=== PATIENT | male | born 1960 | race Caucasian/White ===

== ENCOUNTER → 2017-11-26 | Outpatient (CLI) | payer BC ==
--- NOTE | 2017-11-26 07:56 | XR ---
EXAMINATION TYPE: XR lumbosacral spine min 4V DATE OF EXAM: 11/26/2017 CLINICAL HISTORY: Right low back pain down into right leg for 6 months. TECHNIQUE: Frontal, lateral, and oblique images of the lumbar spine are obtained. COMPARISON: None FINDINGS: There are 5 lumbar type vertebral bodies identified. The lumbar spine shows grade 1 anter olisthesis of L4 on L5 without evidence of acute fracture or dislocation. Vertebral body heights and disk space heights are within normal limits. There is prominent facet arthropathy lower lumbar leve ls. The oblique images appear within normal limits. Vascular calcification of overlying aorta is note d. IMPRESSION: Grade 1 anterolisthesis L4 on L5 with multilevel lower lumbar facet arthropathy.
== END | disposition home or self-care (01) ==
LOC: RADXRMAIN 06:45
PROVIDERS: ATTEND Family Medicine
DX: M43.16 Spondylolisthesis, lumbar region (principal); M46.96 Unspecified inflammatory spondylopathy, lumbar region
CPT/HCPCS: 72110

== ENCOUNTER → 2018-01-11 | Outpatient (CLI) | payer BC ==
--- NOTE | 2018-01-11 08:49 | CT ---
EXAMINATION TYPE: CT lumbar spine w con DATE OF EXAM: 01/11/2018 COMPARISON: NONE HISTORY: Back pain CT DLP: 794.5 mGycm Automated exposure control for dose reduction was used. CONTRAST: CT scan of the lumbar is performed with IV Contrast, patient injected with 100 mL of Isovue 300. TECHNIQUE: Enhanced CT of the lumbar spine was performed. Bone and soft tissue window settings are s ubmitted as well as coronal and sagittal reconstructions. FINDINGS: There is grade 1 anterolisthesis of L4 on L5 without pars interarticularis defect. This is likely degenerative with extensive facet arthropathy seen at this level. Vertebral bodies maintain ve rtebral body heights the lumbar spine. Pedicles and transverse processes are intact. Sacroiliac joint s are symmetric. Moderate atherosclerosis is seen of the abdominal aorta and its branches. Probable r enal sinus cysts are noted bilaterally and partially visualized. L1-L2: There is a small broad-based disc bulge, facet arthropathy and mild ligamentum flavum hypertro phy without spinal canal stenosis or neural foraminal narrowing. L2-L3: There is a broad-based disc bulge and facet arthropathy and ligamentum flavum buckling resulti ng in mild bilateral neural foraminal narrowing and mild spinal canal stenosis. L3-L4: There is a broad-based disc bulge, facet arthropathy and ligamentum flavum buckling creating a t least mild bilateral neural foraminal narrowing and mild spinal canal stenosis. L4-L5: There is disc uncovering from the anterolisthesis with a broad-based disc bulge, facet arthrop athy and ligamentum flavum buckling creating severe right and moderate left neural foraminal narrowin g with at least moderate spinal canal stenosis. L5-S1: Small broad-based disc bulge is seen resulting in mild bilateral neural foraminal narrowing. N o spinal canal stenosis. IMPRESSION: 1. Grade 1 anterolisthesis of L4 on L5 that in combination with degenerative change create at least m oderate spinal canal stenosis, moderate left neural foraminal narrowing and severe right neural angelica inal narrowing. Degree of stenosis could be further evaluated more accurately with MRI. 2. Multilevel degenerative disc disease creating mild spinal canal stenosis from L2 through L4 and va riable degree neural foraminal narrowing as described above.
== END | disposition home or self-care (01) ==
LOC: RADCTMAIN 07:51
PROVIDERS: ATTEND Family Medicine
DX: M48.061 Spinal stenosis, lumbar region without neurogenic claudication (principal); M99.73 Connective tissue and disc stenosis of intervertebral foramina of lumbar region; M51.36 Other intervertebral disc degeneration, lumbar region; M43.16 Spondylolisthesis, lumbar region; M47.816 Spondylosis without myelopathy or radiculopathy, lumbar region
CPT/HCPCS: 72132; Q9967

== ENCOUNTER → 2018-05-14 | Outpatient (CLI) | payer BC ==
--- NOTE | 2018-05-14 13:05 | XR ---
EXAMINATION TYPE: XR lumbar spine 2 or 3V DATE OF EXAM: 05/14/2018 CLINICAL HISTORY: Recent surgery with persistent pain TECHNIQUE: Frontal and lateral images of the lumbar spine are obtained. COMPARISON: Lumbar spine x-ray November 26, 2017. CT lumbar spine January 11, 2018. FINDINGS: There are 5 lumbar type vertebral bodies redemonstrated. There is interval surgery of post erior radicular rods and screws and metallic disc material at L4-L5 level. There is stable grade 1 re trolisthesis of L5 on S1 after surgery. Vertebral body heights and disc space heights above L4 level remain satisfactory. Facet arthropathy mid to lower lumbar spine is again seen. Vascular calcificatio n overlying abdominal aorta is redemonstrated. IMPRESSION: Interval surgery L4-L5 level with stable alignment.
== END | disposition home or self-care (01) ==
LOC: RADXRMAIN 07:32
PROVIDERS: ATTEND Family Medicine
DX: Z47.89 Encounter for other orthopedic aftercare (principal); Z98.890 Other specified postprocedural states
CPT/HCPCS: 72100

== ENCOUNTER 2020-12-06 06:55 | Emergency (ER) | payer BC ==
[2020-12-06 07:01] VITALS: TEMP 98.4
--- NOTE | 2020-12-06 07:22 | ED ---
General Adult HPI - General Chief complaint: Extremity Injury, Lower Stated complaint: Leg pain Time Seen by Provider: 12/06/20 07:03 Source: patient, RN notes reviewed Mode of arrival: ambulatory Limitations: no limitations - History of Present Illness Initial comments: 60-year-old male presents emergency Department chief complaint of left leg pain. Patient states he's been having symptoms for the last 5 weeks [place] having the symptoms he states he started with the pain in his calf region. Patient states that is exacerbated by walking denies any noticeable swelling or redness. No history DVT or PE. Patient states she does have a history of hypertension hyperlipidemia and is a smoker. Patient states that he does not take long walking for the pain increases. He states his toes feel tingly denies any back pain, bowel bladder incontinence retention. - Related Data Home Medications Medication Instructions Recorded Confirmed Aspirin EC [Ecotrin Low Dose] 81 mg PO DAILY 12/06/20 12/06/20 Ibuprofen [Motrin] 800 mg PO Q8H PRN 12/06/20 12/06/20 Simvastatin [Zocor] 20 mg PO HS 12/06/20 12/06/20 amLODIPine [Norvasc] 5 mg PO DAILY 12/06/20 12/06/20 Allergies Allergy/AdvReac Type Severity Reaction Status Date / Time No Known Allergies Allergy Verified 12/06/20 07:43 Review of Systems ROS Statement: Those systems with pertinent positive or pertinent negative responses have been documented in the HPI. ROS Other: All systems not noted in ROS Statement are negative. Past Medical History Past Medical History: Hyperlipidemia, Hypertension History of Any Multi-Drug Resistant Organisms: None Reported Past Surgical History: Back Surgery, Orthopedic Surgery Past Psychological History: No Psychological Hx Reported Smoking Status: Current every day smoker Past Alcohol Use History: Occasional Past Drug Use History: Marijuana General Exam Limitations: no limitations General appearance: alert, in no apparent distress Head exam: Present: atraumatic, normocephalic, normal inspection Eye exam: Present: normal appearance, PERRL, EOMI. Absent: scleral icterus, conjunctival injection, periorbital swelling Respiratory exam: Present: normal lung sounds bilaterally. Absent: respiratory distress, wheezes, rales, rhonchi, stridor Cardiovascular Exam: Present: regular rate, normal rhythm, normal heart sounds. Absent: systolic murmur, diastolic murmur, rubs, gallop, clicks GI/Abdominal exam: Present: soft, normal bowel sounds. Absent: distended, tenderness, guarding, rebound, rigid Extremities exam: Present: other (Lower extremity reveal equal strength equal color slightly temperature change in the left versus the right only in the foot noted, bounding pulse the right faint pulse in the left nontender to palpation the leg) Back exam: Present: full ROM. Absent: tenderness Neurological exam: Present: alert, reflexes normal. Absent: motor sensory deficit Skin exam: Present: warm, dry, intact, normal color. Absent: rash Course Vital Signs 12/06/20 06:56 Temperature 98.4 F Pulse Rate 89 Respiratory 20 Rate Blood Pressure 169/91 O2 Sat by Pulse 99 Oximetry Medical Decision Making - Medical Decision Making Ultrasound was reviewed and shows no evidence of acute DVT though patient has near occlusion of the proximal artery. Patient's case discussed with Dr. Patel on-call for vascular surgeon who recommended patient to follow-up in office as patient has no acute changes. Patient was instructed he has any changes back emergency Department immediately.I counseled the patient for smoking cessation for greater than 3 minutes. Patient understands the risks and states that he will call immediately today for an appointment. - Lab Data Result diagrams: 12/06/20 07:24 12/06/20 07:24 Lab Results 12/06/20 12/06/20 12/06/20 Range/Units 07:24 07:24 07:24 WBC 9.3 (3.8-10.6) k/uL RBC 5.13 (4.30-5.90) m/uL Hgb 15.9 (13.0-17.5) gm/dL Hct 46.8 (39.0-53.0) % MCV 91.2 (80.0-100.0) fL MCH 31.0 (25.0-35.0) pg MCHC 34.0 (31.0-37.0) g/dL RDW 12.8 (11.5-15.5) % Plt Count 232 (150-450) k/uL MPV 7.5 Neutrophils % 63 % Lymphocytes % 26 % Monocytes % 4 % Eosinophils % 5 % Basophils % 1 % Neutrophils # 5.9 (1.3-7.7) k/uL Lymphocytes # 2.4 (1.0-4.8) k/uL Monocytes # 0.4 (0-1.0) k/uL Eosinophils # 0.5 (0-0.7) k/uL Basophils # 0.1 (0-0.2) k/uL PT 10.1 (9.0-12.0) sec INR 0.9 (<1.2) APTT 23.2 (22.0-30.0) sec Sodium 142 (137-145) mmol/L Potassium 4.1 (3.5-5.1) mmol/L Chloride 109 H (98-107) mmol/L Carbon Dioxide 23 (22-30) mmol/L Anion Gap 10 mmol/L BUN 21 H (9-20) mg/dL Creatinine 0.66 (0.66-1.25) mg/dL Est GFR (CKD-EPI)AfAm >90 (>60 ml/min/1.73 sqM) Est GFR (CKD-EPI)NonAf >90 (>60 ml/min/1.73 sqM) Glucose 179 H (74-99) mg/dL Calcium 9.6 (8.4-10.2) mg/dL Total Bilirubin 1.1 (0.2-1.3) mg/dL AST 25 (17-59) U/L ALT 26 (4-49) U/L Alkaline Phosphatase 66 (38-126) U/L Total Protein 7.3 (6.3-8.2) g/dL Albumin 4.6 (3.5-5.0) g/dL Disposition Clinical Impression: Occlusive disease of artery of lower extremity Disposition: HOME SELF-CARE Condition: Stable Instructions (If sedation given, give patient instructions): Peripheral Artery Disease (ED) Additional Instructions: Please return to the Emergency Department if symptoms worsen or any other concerns. Is patient prescribed a controlled substance at d/c from ED?: No Referrals: Jonny Scruggs MD [Primary Care Provider] - 1-2 days Jacqui Patel DO [STAFF PHYSICIAN] - 1-2 days Time of Disposition: 09:02
[2020-12-06 07:30] LABS: Basophils # (A) 0.1 k/uL (0-0.2); Basophils % (A) 1 %; Eosinophils # (A) 0.5 k/uL (0-0.7); Eosinophils % (A) 5 %; HCT 46.8 % (39.0-53.0); HGB 15.9 gm/dL (13.0-17.5); Lymphocytes # (A) 2.4 k/uL (1.0-4.8); Lymphocytes % (A) 26 %; MCV 91.2 fL (80.0-100.0); Mean Platelet Volume 7.5; Monocytes # (A) 0.4 k/uL (0-1.0); Monocytes % (A) 4 %; Neutrophils # (A) 5.9 k/uL (1.3-7.7); Neutrophils % (A) 63 %; Platelet Count 232 k/uL (150-450); RBC 5.13 m/uL (4.30-5.90); RDW 12.8 % (11.5-15.5); WBC 9.3 k/uL (3.8-10.6)
[2020-12-06 07:41] LABS: INR 0.9 (<1.2); Partial Thromboplastin Time 23.2 sec (22.0-30.0); Prothrombin Time 10.1 sec (9.0-12.0)
[2020-12-06 08:01] LABS: ALT 26 U/L (4-49); AST 25 U/L (17-59); African American GFR (CKD) >90 (>60 ml/min/1.73 sqM); Albumin 4.6 g/dL (3.5-5.0); Alkaline Phosphatase 66 U/L (38-126); Anion Gap 10 mmol/L; Blood Urea Nitrogen 21 mg/dL (9-20); Calcium 9.6 mg/dL (8.4-10.2); Carbon Dioxide 23 mmol/L (22-30); Chloride 109 mmol/L (98-107); Glucose 179 mg/dL (74-99); Non-African American GFR(CKD) >90 (>60 ml/min/1.73 sqM); Potassium 4.1 mmol/L (3.5-5.1); Sodium 142 mmol/L (137-145); Total Bilirubin 1.1 mg/dL (0.2-1.3); Total Protein 7.3 g/dL (6.3-8.2)
--- NOTE | 2020-12-06 08:38 | US ---
EXAMINATION TYPE: US venous doppler duplex LE LT DATE OF EXAM: 12/06/2020 8:31 AM COMPARISON: NONE CLINICAL HISTORY: pain. No redness or swelling. Calf pain. Patient states calf pain comes when he w alks and stops when he is still. SIDE PERFORMED: Left TECHNIQUE: The lower extremity deep venous system is examined utilizing real time linear array sonog vibha with graded compression, doppler sonography and color-flow sonography. VESSELS IMAGED: Common Femoral Vein Deep Femoral Vein Greater Saphenous Vein * Femoral Vein Popliteal Vein Small Saphenous Vein * Proximal Calf Veins (* superficial vessels) Left Leg: Appears NEGATIVE for DVT. Incidental finding: Popliteal artery appears almost occluded. Grayscale, color doppler, spectral doppler imaging performed of the deep veins of the left lower extr emity. There is normal flow, compressibility, vascular waveforms. IMPRESSION: No ultrasound evidence for acute DVT in the left lower extremity. Note is made of near c omplete occlusion in the popliteal artery towards the end of study. Correlate clinically.
[2020-12-06 09:05] VITALS: BP 138/79; PULSE 76; RESP 18
== END 2020-12-06 09:05 | disposition home or self-care (01) ==
LOC: EC 06:55
DX: I70.202 Unspecified atherosclerosis of native arteries of extremities, left leg (principal); I10 Essential (primary) hypertension; E78.5 Hyperlipidemia, unspecified; F17.200 Nicotine dependence, unspecified, uncomplicated; F12.90 Cannabis use, unspecified, uncomplicated; Z79.82 Long term (current) use of aspirin
CPT/HCPCS: 36415; 80053; 85025; 85610; 85730; 99284

== ENCOUNTER 2020-12-24 09:23 | Day surgery (SDC) | payer BC ==
[2020-12-19 13:13] VITALS: BMI 29.4
[~2020-12-24 09:23] MED LIST: ALPRAZolam 0.25 MG TAB PO PRN; ASPIRIN 325 MG TAB PO PRN; SODIUM CHLORIDE 0.9% 1,000 ML in EMPTY BAG 1 BAG IV ONE
[2020-12-24] MEDS ORDERED: SODIUM CHLORIDE 0.9% 1,000 ML IV ONE (09:40)
[2020-12-24 09:44] VITALS: RESP 16; TEMP 99
[2020-12-24] MEDS ORDERED: MIDAZOLAM 2 MG/2 ML VIAL IV ONE (11:14)
[2020-12-24] MEDS ORDERED: LIDOCAINE 1% INJ 10MG/ML (20 ML MDV) SQ ONE (11:15)
[2020-12-24] MEDS ORDERED: IOPAMIDOL-250 100ML BTL INTRAARTER ONE (11:27)
[2020-12-24] MEDS ORDERED: SODIUM CHLORIDE 0.9% 1,000 ML IV SCH (11:45)
--- NOTE | 2020-12-24 11:54 | IR ---
Fluoroscopy HISTORY: Peripheral vascular disease 0.7 minutes fluoroscopy time supplied to the referring clinician. 163 intraoperative C-arm images do cument the procedure. See dictated report from cardiology.
--- NOTE | 2020-12-24 16:49 | AN ---
ANGIOGRAPHY REPORT DATE OF SERVICE: 12/24/2020 PERFORMING PHYSICIAN: Harvinder Corley M.D. PROCEDURES PERFORMED: 1. Abdominal aortogram. 2. Bilateral lower extremity runoff. INDICATION: Left lower extremity intermittent claudication in this 60-year-old gentleman who underwent duplex study that was abnormal. APPROACH: Right common femoral artery. COMPLICATIONS: None. LEVEL OF SEDATION: Moderate, with sedation length of 14 minutes. PROCEDURE DESCRIPTION: After obtaining informed consent, the patient was brought to the cardiac laborer hoisting. The right common femoral artery was cannulated using micropuncture technique. The micropuncture wire was passed easily. Then I placed a 5-Cameroonian sheath. I did abdominal aortogram and bilateral lower extremity runoff using 5-Cameroonian pigtail catheter which was initially placed at the level of the renal arteries, then it was pulled into above the bifurcation of the aorta to right and left common iliac arteries. The procedure was completed without any complication. SELECTIVE PERIPHERAL ANGIOGRAM: 1. The aorta appeared to be angiographically normal. 2. Common iliac arteries. The right common iliac artery appeared to be angiographically normal and the left common iliac artery appeared to be occluded proximally and reconstitute by the external iliac artery on the right. 3. External iliac arteries. Both appeared to be angiographically normal. 4. Common femoral arteries. Both appeared to be angiographically normal. 5. Profundae. Both are patent. 6. SFA. Both appeared to be patent. 7. Popliteals. The right popliteal appeared to be angiographically normal and the left popliteal is occluded and reconstitutes below the knee. 8. Below the knee. There is 2-vessel runoff below the knee bilaterally with AT and PT. CONCLUSION: 1. 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 2. 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 POST-PROCEDURE MANAGEMENT: The patient will be discharged home and he will be scheduled to undergo PARAOPTOMETRIC of the left iliac and left popliteal. MMODL / IJN: [id number] /
[2020-12-24 17:00] VITALS: BP 132/73; PULSE 58
== END 2020-12-24 17:00 | disposition home or self-care (01) ==
LOC: CATHCVL 09:23
PROVIDERS: ATTEND Internal Medicine Interventional Cardiology
DX: I70.212 Atherosclerosis of native arteries of extremities with intermittent claudication, left leg (principal); I10 Essential (primary) hypertension; F17.210 Nicotine dependence, cigarettes, uncomplicated; Z79.899 Other long term (current) drug therapy; Z79.82 Long term (current) use of aspirin
CPT/HCPCS: 36200; 75625; 75716; C1769 ×4; C1894; J2250; J2001; Q9966

== ENCOUNTER 2021-01-15 10:38 | Day surgery (SDC) | payer BC ==
[2021-01-13 11:56] VITALS: BMI 28.7
[2021-01-15 11:49] LABS: Basophils # (A) 0.1 k/uL (0-0.2); Basophils % (A) 1 %; Eosinophils # (A) 0.4 k/uL (0-0.7); Eosinophils % (A) 4 %; HCT 47.9 % (39.0-53.0); HGB 15.6 gm/dL (13.0-17.5); Lymphocytes # (A) 2.7 k/uL (1.0-4.8); Lymphocytes % (A) 24 %; MCH 29.9 pg (25.0-35.0); MCHC 32.6 g/dL (31.0-37.0); MCV 91.8 fL (80.0-100.0); Mean Platelet Volume 7.8; Monocytes # (A) 0.6 k/uL (0-1.0); Monocytes % (A) 5 %; Neutrophils # (A) 7.4 k/uL (1.3-7.7); Neutrophils % (A) 65 %; Platelet Count 250 k/uL (150-450); RBC 5.22 m/uL (4.30-5.90); RDW 13.4 % (11.5-15.5); WBC 11.4 k/uL (3.8-10.6)
[2021-01-15 11:58] LABS: African American GFR (CKD) >90 (>60 ml/min/1.73 sqM); Anion Gap 13 mmol/L; Blood Urea Nitrogen 18 mg/dL (9-20); Calcium 9.9 mg/dL (8.4-10.2); Carbon Dioxide 22 mmol/L (22-30); Chloride 106 mmol/L (98-107); Glucose 104 mg/dL (74-99); Non-African American GFR(CKD) >90 (>60 ml/min/1.73 sqM); Sodium 141 mmol/L (137-145)
[2021-01-15 12:07] LABS: Potassium 4.9 mmol/L (3.5-5.1)
[2021-01-15] MEDS: MIDAZOLAM 2 MG/2 ML VIAL IVP ONE ×2 (14:38→14:49)
[2021-01-15] MEDS: fentaNYL (PF) 50 MCG/ML 2 ML AMP IVP ONE ×2 (14:38→15:49)
[2021-01-15] MEDS ORDERED: LIDOCAINE 1% INJ 10MG/ML (20 ML MDV) SQ ONE (14:39)
[2021-01-15] MEDS: HEPARIN SODIUM 1,000 UN/ML (10ML VL) IV ONE ×2 (14:42→15:24)
[2021-01-15] MEDS ORDERED: CLOPIDOGREL 75 MG TAB PO ONE (16:41)
[2021-01-15] MEDS ORDERED: IOPAMIDOL-250 100ML BTL INTRAARTER ONE (16:56)
[2021-01-15] MEDS ORDERED: SODIUM CHLORIDE 0.9% 1,000 ML in EMPTY BAG 1 BAG IV SCH (17:15)
[2021-01-15] MEDS ORDERED: ONDANSETRON 4 MG/2 ML VIAL ONE (17:33)
--- NOTE | 2021-01-15 19:47 | LTR ---
DATE OF SERVICE: January 15, [address] Scruggs: I had the pleasure of seeing Tres Garcia at [facility] today where he underwent successful balloon angioplasty and stenting of chronically occluded left common and left external iliac arteries. The procedure went very well without any complication with good angiographic results. I want to thank you for allowing us to participate in his care. Please do not hesitate to call if you have any questions or concerns. Sincerely, Harvinder Corley MD MMJANIE / SILVIANON: [id number] /
--- NOTE | 2021-01-15 20:00 | AN ---
ANGIOGRAPHY REPORT DATE OF SERVICE: January 15, 2021 PERFORMING PHYSICIAN: Harvinder Corley MD. PROCEDURE PERFORMED: 1. Successful stenting of the left external iliac artery using 10 x 80 mm absolute Pro self expandable stent with an excellent angiographic results. 2. Successful stenting of the left common iliac artery using 8 x 57 and 8 x 27 Visi pro balloon expandable stent with an excellent angiographic results. 3. Successful crossing chronic total occlusion of the left common and left external iliac artery. 4. Selective angiogram of the left common and left external and left common femoral arteries. 5. Selective right common femoral artery angiogram. INDICATION: This is a 60-year-old gentleman with significant history of smoking, who was experiencing left leg intermittent claudication, Fontan class 3, who recently underwent a Doppler study and that revealed occluded left popliteal artery. He underwent an angiogram and that revealed occluded left common and left popliteal arteries. He was brought today for intervention. APPROACH: Right common femoral artery. COMPLICATION: None. LEVEL OF SEDATION: Moderate with sedation length of 127 minutes. PROCEDURE DESCRIPTION: After obtaining an informed consent, the patient was brought to the cardiac concrete plant laborer. The right common femoral artery was cannulated using micropuncture technique under ultrasound guidance, the micropuncture wire passed easily. Then I placed a 6-Sierra Leonean sheath 23 cm Brite tip sheath in the right common femoral artery. Anticoagulation at that point was initiated using heparin with continuous ACT monitoring throughout the case. After that, I did select the left common iliac artery using an Omni Flush catheter. Using a 035 glide wire, I was able to cross the chronic total occlusion of the left common iliac artery and advance the catheter all the way to the left common femoral artery where I did inject contrast to prove that I was in the true lumen. After that. I did exchange my 23 cm 6-Sierra Leonean Brite tip sheath into a 55 cm Raabe sheath using the 0.035 stiff Glidewire. Subsequently, I did balloon angioplasty of the left external and left common iliac artery using 6 mm x 120 mm balloon. After that for the left external iliac artery, I deployed a 10 x 80 mm absolute Pro self expandable stent. The stent was positioned under fluoroscopy guidance and deployed under fluoroscopic guidance. For the left common iliac artery, I deployed 2 balloon expandable stent. The first one distally was 8 x 57 and the second one was 8 x 27 mm. I did post dilate the self expandable stent using the balloon expandable stents. The final angiogram showed excellent angiographic results. Gently, I attempted crossing the COUNTER CLERK of the left popliteal and that was unsuccessful because it is more favorable coming from a pedal approach. At that point, I decided to stop. I did after that exchange my long sheath into short sheath using 0.035 stiff Glidewire before I did selective left common femoral artery angiogram. The procedure was completed without any complication. POSTPROCEDURE MANAGEMENT: 1. Dual anti-platelet therapy. 2. Risk factor modifications. 3. Follow up with the patient. MMODL / IJN: [id number] /
[2021-01-15] MEDS ORDERED: METOCLOPRAMIDE 5 MG/ML 2 ML VIAL IVP PRN (20:56)
[2021-01-15] MEDS ORDERED: ATORVASTATIN 10 MG TAB PO SCH (21:00)
--- NOTE | 2021-01-15 22:12 | IR ---
Fluoroscopy HISTORY: Peripheral vascular occlusive disease 55.5 minutes fluoroscopy time supplied to the referring clinician. 262 intraoperative C-arm images d ocument the procedure. See dictated report from cardiology.
[2021-01-16 05:49] VITALS: RESP 18; TEMP 98.3
[2021-01-16 08:13] LABS: Basophils % (A) 0 %; Eosinophils # (A) 0.1 k/uL (0-0.7); Eosinophils % (A) 0 %; HCT 46.4 % (39.0-53.0); HGB 15.8 gm/dL (13.0-17.5); Lymphocytes % (A) 11 %; MCH 31.1 pg (25.0-35.0); MCV 91.3 fL (80.0-100.0); Mean Platelet Volume 7.9; Monocytes % (A) 6 %; Neutrophils # (A) 14.4 k/uL (1.3-7.7); Neutrophils % (A) 82 %; Platelet Count 254 k/uL (150-450); RBC 5.08 m/uL (4.30-5.90); RDW 12.9 % (11.5-15.5); WBC 17.7 k/uL (3.8-10.6)
[2021-01-16 08:30] LABS: African American GFR (CKD) >90 (>60 ml/min/1.73 sqM); Anion Gap 9 mmol/L; Blood Urea Nitrogen 13 mg/dL (9-20); Calcium 9.7 mg/dL (8.4-10.2); Carbon Dioxide 25 mmol/L (22-30); Chloride 103 mmol/L (98-107); Glucose 122 mg/dL (74-99); Non-African American GFR(CKD) >90 (>60 ml/min/1.73 sqM); Potassium 4.6 mmol/L (3.5-5.1); Sodium 137 mmol/L (137-145)
[2021-01-16 09:00] VITALS: BP 138/69; PULSE 75
[2021-01-16] MEDS ORDERED: ASPIRIN 81 MG PO SCH (09:00)
[2021-01-16] MEDS ORDERED: CLOPIDOGREL 75 MG TAB PO SCH (09:00)
[2021-01-16] MEDS ORDERED: amLODIPine 5 MG TAB PO SCH (09:00)
--- NOTE | 2021-01-16 23:02 | DS ---
DISCHARGE SUMMARY ADMISSION DATE: January 15, 2021. DISCHARGE DATE: January 16, 2021. BRIEF HISTORY: This is a 60-year-old gentleman who was admitted to the hospital yesterday and underwent successful recanalizing, chronically occluded left iliac artery with good angiographic results and without any complication from right groin approach. The patient was seen this morning. The right groin is soft and nontender and without any bruises. He is going to be discharged home on dual anti-platelet therapy and I will follow up with the patient next week in the office. MMODL / IJN: [id number] /
== END 2021-01-16 12:48 | disposition home or self-care (01) ==
LOC: CATHCVL 10:38 → 3SCARD 16:45 → CATHCVL 01-16 12:48
PROVIDERS: ATTEND Internal Medicine Interventional Cardiology
DX: I70.212 Atherosclerosis of native arteries of extremities with intermittent claudication, left leg (principal); F17.210 Nicotine dependence, cigarettes, uncomplicated; I10 Essential (primary) hypertension; E78.5 Hyperlipidemia, unspecified; Z79.899 Other long term (current) drug therapy; I70.92 Chronic total occlusion of artery of the extremities
CPT/HCPCS: 37221; 37223; 80048 ×2; 85025 ×2; 87635; C1894 ×3; C1769 ×7; C1876 ×2; C1725; J2250; J2765; J2405; J2001; J3010; J1644; Q9966

== ENCOUNTER → 2021-10-30 | Day surgery (SDC) | payer BC ==
[2021-10-28 09:29] VITALS: BMI 29.4
[~2021-10-30] MED LIST changes: +ASPIRIN 81 MG PO SCH; +ATORVASTATIN 10 MG TAB PO SCH; +CLOPIDOGREL 75 MG TAB PO SCH; +HEPARIN SODIUM,PORCINE 10,000 UNIT in SODIUM CHLORIDE 0.9% 1,000 ML IRRIGATION PRN; +HEPARIN SODIUM,PORCINE 2,500 UNIT in SODIUM CHLORIDE 0.9% 250 ML IRRIGATION PRN; +IOPAMIDOL-250 100ML BTL INTRAARTER ONE; +LIDOCAINE 1% INJ 10MG/ML (20 ML MDV) SQ ONE; +MIDAZOLAM 2 MG/2 ML VIAL IV ONE; +NALOXONE 0.4 MG/ML 1 ML VIAL IVP PRN; +ZOLPIDEM 5 MG TAB PO PRN; +amLODIPine 5 MG TAB PO SCH
[2021-10-30 07:37] VITALS: TEMP 98.5
[2021-10-30 07:44] LABS: Basophils # (A) 0.1 k/uL (0-0.2); Basophils % (A) 1 %; Eosinophils # (A) 0.5 k/uL (0-0.7); Eosinophils % (A) 5 %; HCT 48.3 % (39.0-53.0); Lymphocytes # (A) 2.7 k/uL (1.0-4.8); Lymphocytes % (A) 27 %; MCH 31.3 pg (25.0-35.0); MCHC 33.2 g/dL (31.0-37.0); MCV 94.2 fL (80.0-100.0); Mean Platelet Volume 7.7; Monocytes # (A) 0.6 k/uL (0-1.0); Monocytes % (A) 6 %; Neutrophils # (A) 5.9 k/uL (1.3-7.7); Neutrophils % (A) 59 %; Platelet Count 265 k/uL (150-450); RBC 5.13 m/uL (4.30-5.90); RDW 13.4 % (11.5-15.5); WBC 9.9 k/uL (3.8-10.6)
[2021-10-30 07:54] LABS: African American GFR (CKD) >90 (>60 ml/min/1.73 sqM); Anion Gap 8 mmol/L; Blood Urea Nitrogen 19 mg/dL (9-20); Calcium 9.3 mg/dL (8.4-10.2); Carbon Dioxide 22 mmol/L (22-30); Chloride 109 mmol/L (98-107); Glucose 120 mg/dL (74-99); Non-African American GFR(CKD) >90 (>60 ml/min/1.73 sqM); Potassium 4.5 mmol/L (3.5-5.1); Sodium 139 mmol/L (137-145)
--- NOTE | 2021-10-30 10:08 | IR ---
Fluoroscopy HISTORY: Pain in left leg 60 seconds fluoroscopy time supplied to the referring clinician. 140 intraoperative C-arm images doc ument the procedure. See dictated report from cardiology.
[2021-10-30 10:28] VITALS: RESP 16
[2021-10-30 13:45] VITALS: BP 127/71; PULSE 68
--- NOTE | 2021-10-31 12:54 | P.PCN ---
Date of Procedure: 10/31/21 Operative Findings: AN ABDOMINAL AORTOGRAM AND BILATERAL LOWER EXTREMITIES RUNOFF PERFORMING PHYSICIAN: Harvinder Corley MD PROCEDURE PERFORMED: 1. An abdominal aortogram 2. Bilateral lower extremities runoff INDICATION: Intermittent claudication in this 60-year-old gentleman who is known to have PAD and prior angioplasty COMPLICATION: None LEVEL OF SEDATION: Moderate was sedation length of moderate was sedation length of 10 minutes APPROACH: Right common femoral artery PROCEDURE DESCRIPTION: After obtaining informed consent and explaining the procedure benefits, risks, and complications, the patient was brought to the cardiac labeling strategist. The right groin was prepped and draped in sterile fashion. The right common femoral artery was cannulated using micropuncture technique, under ultrasound guidance. A micropuncture wire was advanced, and the micropuncture sheath was advanced over the wire, then the micropuncture sheath was exchanged over an 0.35 wire into a 5-Cymraes sheath dilator assembly then the wire and dilator were removed and sheath was flushed. We did an abdominal aortogram and bilateral lower extremities runoff using 5- Cymraes pigtail catheter using a power injection. The catheter was initially placed at the level of the renal arteries, and it was pulled into above the bifurcation of the aorta into right and left common iliac arteries. The procedure was completed and there was no complications. SELECTIVE PERIPHERAL ANGIOGRAM: The abdominal aorta: Is angiographically normal The common iliac arteries: The right common iliac artery is angiographically normal. The left common iliac artery appeared to be angiographically normal The external iliac arteries: The right external iliac artery appeared to be angiographically normal. The left external iliac artery appeared to have in-stent restenosis in the range of 60% The internal iliac arteries: Both internal iliacs are patent The common femoral arteries: The right and left common femoral arteries appeared to have mild disease on Superficial femoral arteries: The right and left SFA appears to have mild disease only Popliteal arteries: The right popliteal appeared to be angiographically normal. The left popliteal is occluded Below the knees: There are 2 vessels run of below the knee bilaterally CONCLUSION: Intermediate in-stent restenosis involving the left external iliac artery Occluded left popliteal POSTPROCEDURE MANAGEMENT: MARKETING PROPOSAL SPECIALIST of the left popliteal and assess the gradient across the left iliac artery
== END ==
LOC: CATHCVL 07:11
PROVIDERS: ATTEND Internal Medicine Interventional Cardiology
DX: T82.856A Stenosis of peripheral vascular stent, initial encounter (principal); I10 Essential (primary) hypertension; Z87.891 Personal history of nicotine dependence; E78.5 Hyperlipidemia, unspecified; Z20.822 Contact with and (suspected) exposure to COVID-19; Z79.01 Long term (current) use of anticoagulants; Z79.82 Long term (current) use of aspirin; Z79.899 Other long term (current) drug therapy
CPT/HCPCS: 36200; 75625; 75716; 76937; 80048; 85025; 87635; C1894; C1769 ×3; J2250; J2001; Q9966

== ENCOUNTER → 2023-09-01 | Outpatient (CLI) | payer BC ==
--- NOTE | 2023-09-01 16:27 | CTL ---
EXAMINATION TYPE: CT Low Dose Lung DATE OF EXAM ORDERED: 09/01/2023 HISTORY: Tobacco use. Lung cancer screening CT DLP: 130.[address] CTDI: 3.2 mGy Automated exposure control for dose reduction was used. SCREENING VISIT: Initial COMPARISON: None TECHNIQUE: Low dose computed tomography scan was performed through the chest at 1 mm thick sections a nd reconstructed images in the coronal plane at [address] DIAGNOSTIC QUALITY: Satisfactory FINDINGS: LUNG NODULES: None. LUNGS: COPD: Severity: Minimal Fibrosis: Severity: None Lymph nodes: None Other findings: None RIGHT PLEURAL SPACE: Effusion: None Calcification: None Thickening: None Pneumothorax: None LEFT PLEURAL SPACE: Effusion: None Calcification: None Thickening: None Pneumothorax: None HEART: Heart Size: Normal Coronary calcification: Moderate Pericardial effusion: None OTHER FINDINGS: Upper abdomen: Normal Bony thorax: Normal Supraclavicular region: Normal Other: Ascending thoracic aorta at the level the main pulmonary artery measures 3.8 cm. The main pul monary artery at the bifurcation measures 2.4 cm. IMPRESSION: 1. No suspicious changes as primary or metastatic neoplasm. FOLLOW UP CT CHEST RECOMMENDATION: Follow-up low-dose CT chest [address] LUNG RAD: Lung-Rad 1 Negative
== END | disposition home or self-care (01) ==
LOC: RADCTMAIN 15:09
PROVIDERS: ATTEND Family Medicine
DX: Z12.2 Encounter for screening for malignant neoplasm of respiratory organs (principal); F17.210 Nicotine dependence, cigarettes, uncomplicated
CPT/HCPCS: 71271

== ENCOUNTER → 2023-12-19 | Outpatient (CLI) | payer BC ==
--- NOTE | 2023-12-19 14:33 | MR ---
EXAMINATION TYPE: MR liver wo/w con DATE OF EXAM: 12/19/2023 1:43 PM CLINICAL INDICATION:Male, 63 years old with history of E80.7 DISORDER OF BILIRUBIN METABOLISM, UNSPEC IFIE; PHH, Attention to liver and pancreas, elevated bilirubin. COMPARISON: Prior ultrasound 2015., lung CT 09/01/2023 TECHNIQUE: Multiplanar multi-sequence imaging was performed without contrast. Post contrast imaging was performed. Post IV contrast subtraction images were also submitted for review. IV Contrast: 9 cc Gadavist FINDINGS: LOWER CHEST: No gross irregularity. ABDOMEN Liver: No evidence for hepatic steatosis or cirrhosis. Signal dropout on chemical shift in phase imag ing. Vascular shunt phenomenon noted within the right hepatic lobe with wedge-shaped area of enhancem ent on arterial phase which becomes isointense to background liver on additional delayed imaging. No suspicious lesions. No dilated ducts. Gallbladder and Bile ducts: No evidence for ductal dilation, or biliary stricture or evidence of chol edocholithiasis. The gallbladder is within normal limits. Pancreas: Cluster of cysts is seen in the pancreatic tail series 301 image 19 measuring 17 x 14 mm. N o definitive enhancement is seen within this region. No ductal dilation. No evidence for solid mass. Spleen: Normal for size. Adrenal glands: Unremarkable. Kidneys: No evidence for obstructive uropathy. No suspicious renal masses. Bilateral renal cortical high T2 simple appearing renal cysts. Additional peripelvic renal cysts bila terally. Stomach and Bowel: No evidence for bowel wall thickening or evidence for obstruction. Retroperitoneum/Peritoneum: No evidence of pneumoperitoneum or free fluid. Vasculature: No aortic aneurysm. Musculoskeletal: The osseous structures appear intact. Postsurgical Lymph Nodes: No gross evidence for lymphadenopathy. Abdominal wall: Unremarkable. IMPRESSION: 1. No evidence for ductal dilation. The intrahepatic and extra hepatic biliary system appear grossly unremarkable. No evidence for liver or pancreatic mass. 2. Bilateral Bosniak type I and type II equivalent renal cysts. 3. Pancreatic tail cystic lesion possibly representing sequela of prior pancreatitis versus side bran ch intraductal mucinous neoplasm versus other cystic neoplasms. Attention on follow-up imaging in one year with MRI MRCP with contrast to ensure stability. 4. Iron deposition within the liver.
== END | disposition home or self-care (01) ==
LOC: RADMRIMAIN 12:34
PROVIDERS: ATTEND Family Medicine
DX: K86.89 Other specified diseases of pancreas (principal); N28.1 Cyst of kidney, acquired; E80.7 Disorder of bilirubin metabolism, unspecified
CPT/HCPCS: 74183; A9585